=== PATIENT | female | born 1965 | race American Indian/Alaskan Native ===

== ENCOUNTER 2018-04-22 10:21 | Emergency (ER) | payer OTHER ==
[2018-04-22 13:31] VITALS: BP 124/88
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
[2018-04-22] MEDS ORDERED: TORADOL IM ONE (13:36)
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
== END 2018-04-22 13:53 | disposition home or self-care (01) ==
LOC: ED 10:21
DX: S16.1XXA Strain of muscle, fascia and tendon at neck level, initial encounter (principal); S80.12XA Contusion of left lower leg, initial encounter; I10 Essential (primary) hypertension; Z90.49 Acquired absence of other specified parts of digestive tract; S80.11XA Contusion of right lower leg, initial encounter; Y93.89 Activity, other specified; V49.9XXA Car occupant (driver) (passenger) injured in unspecified traffic accident, initial encounter; Y99.8 Other external cause status; Y92.410 Unspecified street and highway as the place of occurrence of the external cause
CPT/HCPCS: 96372; 99282; J1885